=== PATIENT | male | born 1960 | race Caucasian/White ===

== ENCOUNTER 2017-03-03 10:42 | Day surgery (SDC) | payer OTHER ==
[2017-02-26 14:28] VITALS: BMI 28.5
[~2017-03-03 10:42] MED LIST: DEXAMETHASONE SOD PHOSPHATE 10 MG/ML 1 ML VIAL IV ONE; HEPARIN SODIUM,PORCINE 5,000 UNIT/ML 1 ML VIAL SQ ONE; HYDROmorphone 0.5 MG/0.5 ML SYRINGE IVP PRN; LIDOCAINE 1% 20 ML VIAL (10MG/ML) FOR IV START INTRADERMA PRN; MIDAZOLAM 2 MG/2 ML VIAL IV PRN; ONDANSETRON 4 MG/2 ML VIAL IVP ONE; SCOPOLAMINE 1.5MG/72HR PATCH TRANSDERM ONE; ceFAZolin IN SWFI 2 GM/20 ML SYRINGE IVP ONE
[2017-03-03 11:31] VITALS: TEMP 97.8
[2017-03-03] MEDS: LACTATED RINGERS 1,000 ML IV SCH (12:02)
[2017-03-03] MEDS ORDERED: LIDOCAINE 1% 20 ML VIAL (10MG/ML) FOR IV START INTRADERMA ONE (12:03)
[2017-03-03] MEDS ORDERED: ePHEDrine SULFATE/0.9% NACL/PF 50 MG/5 ML SYRINGE IV ONE (13:11)
[2017-03-03] MEDS ORDERED: PHENYLEPHRINE-0.9% NACL SYG 1 MG/10 ML SYRINGE ONE (13:11)
[2017-03-03] MEDS ORDERED: PROPOFOL 10 MG/ML 20 ML VIAL IV ONE (13:11)
[2017-03-03] MEDS ORDERED: GLYCOPYRROLATE 0.2 MG/ML 2 ML VIAL ONE (13:11)
[2017-03-03] MEDS ORDERED: NEOSTIGMINE 1 MG/ML 10 ML VIAL ONE (13:11)
[2017-03-03] MEDS ORDERED: LIDOCAINE 1% INJ 10MG/ML (20 ML MDV) ONE (13:11)
[2017-03-03] MEDS ORDERED: ROCURONIUM BROMIDE 10 MG/ML 10 ML VIAL IV ONE (13:11)
[2017-03-03] MEDS ORDERED: MIDAZOLAM 2 MG/2 ML VIAL ONE (13:11)
[2017-03-03] MEDS ORDERED: SUCCINYLCHOLINE CHLORIDE 100 MG/5 ML SYR IV ONE (13:11)
[2017-03-03] MEDS ORDERED: fentaNYL (PF) 50 MCG/ML 2 ML AMP ONE (13:11)
--- NOTE | 2017-03-03 14:14 | HP ---
History of Present Illness H&P Date: 03/03/17 Chief Complaint: Bilateral inguinal hernias This is a 66-year-old male who presents today for laparoscopic robotic-assisted repair of bilateral inguinal hernias. Patient has a previous history of a right inguinal hernia. Dr. Richardson did his hernia repair prostate 10 years ago. Patient underwent recent workup and was found have evidence of bilateral inguinal hernias on CAT scan. Surgical - Exam - General well developed, no distress - Eyes PERRL - ENT normal pinna - Neck no masses - Respiratory normal expansion - Cardiovascular Rhythm: regular - Abdomen Abdomen: soft, non tender Hernia: inguinal (Small bilateral inguinal hernias) Assessment and Plan Assessment: Bilateral inguinal hernias. We'll perform laparoscopic robotic-assisted repair. ANJEL
[2017-03-03] MEDS ORDERED: BUPIVACAINE-EPI 0.5%-1:200,000 10 ML VIAL SQ ONE (14:24)
[2017-03-03] MEDS ORDERED: LACTATED RINGERS 1,000 ML IV ONE (14:59)
[2017-03-03 16:27] VITALS: RESP 16
[2017-03-03] MEDS ORDERED: HYDROcodone/APAP 7.5-325MG 1 EACH TAB PO ONE (16:36)
[2017-03-03 17:00] VITALS: BP 99/58; PULSE 81
--- NOTE | 2017-03-03 17:29 | P.OP ---
Date of Procedure: 03/03/17 Preoperative Diagnosis: Bilateral inguinal hernia Postoperative Diagnosis: Bilateral inguinal hernia Procedure(s) Performed: Laparoscopic robotic system repair of bilateral inguinal hernia Anesthesia: DANIS Surgeon: Layton Hill Estimated Blood Loss (ml): 5 Pathology: none sent Condition: stable Disposition: PACU Description of Procedure: The patient was placed on the operating table in the supine position. The patient received general anesthesia. The patient's abdomen was prepped and draped in usual sterile fashion. The skin was anesthetized 1% local Xylocaine at the incision sites. Using an 11 blade a skin incision was made at the umbilicus. The fascia was grasped with a Earnestine and then the peritoneal cavity was entered with the Veress needle. Position of the Veress needle was confirmed with a positive drop test. After adequate insufflation a 5 mm trocar was placed into the peritoneal cavity. The Laparoscope was placed the peritoneal cavity. And a robotic 8 mm trocar was placed in the right lateral position and then another 8 mm robotic trochars placed in the left lateral position. The original 5 mm trocar was exchanged for a 8 mm trocar.. The patient was placed in reverse Trendelenburg and then the patient was docked to the robot. Next the peritoneum over top of the right inguinal hernia was incised and then using blunt and sharp dissection and electrocautery the hernia sac was dissected free from the floor of the inguinal canal. The patient had a previous hernia repair. The mesh could not be seen. The hernia sac was completely reduced into the peritoneal cavity. And then using the Pro flight instructor mesh the hernia was repaired. The peritoneum was then sutured with 20V lock suture. Next, the left inguinal hernia was repaired in identical fashion. The peritoneum over top of the inguinal hernia was incised using the suture [employer] needle truck driver teamster and then using blunt dissection the peritoneum was dissected free. Patient had a small inguinal hernia which contained fat. This was reduced. There is also a small direct space hernia. Once the dissection was complete the Prograf mesh was placed into the wound. The Prograf mesh was expanded and then the peritoneum was closed with 2-0 V LOC suture.. The patient was then undocked the robot. The needle was withdrawn from the peritoneal cavity. The umbilical trocar site was closed with 0 Ethibond suture. The skin was closed interrupted 3-0 Monocryl suture. Dermabond dressing was applied. Patient was sent to recovery in stable condition.
--- NOTE | 2017-03-03 17:31 | P.GSHP ---
History of Present Illness H&P Date: 03/03/17 Chief Complaint: Right and left inguinal pain, bilaterally inguinal hernia This a 56-year-old male referred from Dr. Scott Morgan. Patient had complaints of abdominal pain. He was examined the office. The patient had a subsequent CAT scan which showed bilateral fat-containing inguinal hernias. Patient states that he's had a previous inguinal hernia by Dr. Alexander approximately 10 years ago. Patient states that he had a right inguinal hernia repair. Past Medical History Past Medical History: No Reported History Additional Past Medical History / Comment(s): Ing. Hernia History of Any Multi-Drug Resistant Organisms: None Reported Past Surgical History: Hernia Repair Past Anesthesia/Blood Transfusion Reactions: No Reported Reaction Smoking Status: Current every day smoker - Past Family History Father Family Medical History: Cancer Additional Family Medical History / Comment(s): Prostate CA Medications and Allergies Home Medications Medication Instructions Recorded Confirmed Type Docusate [Colace] 100 mg PO BID #20 capsule 03/03/17 Rx HYDROcodone/APAP 7.5-325MG [Concrete 1 each PO Q4H PRN #60 tab 03/03/17 Rx 7.5] Allergies Allergy/AdvReac Type Severity Reaction Status Date / Time No Known Allergies Allergy Verified 03/03/17 11:24 Surgical - Exam Vital Signs Temp Pulse Resp BP Pulse Ox 97.8 F 86 16 118/87 100 03/03/17 11:30 03/03/17 11:30 03/03/17 11:30 03/03/17 11:30 03/03/17 11:30 - General well developed, no distress - Eyes PERRL - ENT normal pinna - Neck no masses - Respiratory normal expansion - Cardiovascular Rhythm: regular - Abdomen Abdomen: soft, non tender Hernia: inguinal (Bilateral small inguinal hernia) Assessment and Plan Assessment: Bilateral fat-containing inguinal hernias. Patient will undergo laparoscopic robotic system repair
== END 2017-03-03 17:15 | disposition home or self-care (01) ==
LOC: OR 10:42
PROVIDERS: ATTEND Surgery
DX: K40.21 Bilateral inguinal hernia, without obstruction or gangrene, recurrent (principal); F17.200 Nicotine dependence, unspecified, uncomplicated; Z79.899 Other long term (current) drug therapy
CPT/HCPCS: 49651; C1781; J2250; J1644; J1100; J2710; J0690; J2405; J2001; J3010; J2370; J0330; J2704